=== PATIENT | male | born 1975 | race Caucasian/White ===

== ENCOUNTER 2023-07-14 21:19 | Inpatient (IN) | payer OTHER, MEDICAID, SELFPAY ==
[2023-07-14 21:21] VITALS: BP 150/123; PULSE 68; RESP 15; TEMP 36.7; O2SAT 97; BMI 38.9
--- NOTE | 2023-07-14 21:41 | EX.ED.SAOD ---
HPI History of Present Illness Chief Complaint: Substance Abuse Detail of Chief Complaint: Ativan withdrawal requesting detox Informant: patient Narrative Narrative: Patient presents to the emergency department with complaint of withdrawing from Ativan. Would like detox. Patient was at a facility in [place] voluntarily being weaned off of the Ativan and his last dose was 4 days ago had half a milligram. He had been taken 2 mg twice a day for 10 years prior for anxiety. Patient feels anxious and jittery and shaky. He left the program that in [place] early. He is not taking Vistaril and clonidine. [facility] Medical History (Updated 07/14/23 @ 21:[address] Buster Moctezuma, DO) OCD (obsessive compulsive disorder) Anxiety Home Medications ?Medication ?Instructions ?Recorded ?Last Taken ?Type apixaban 5 mg tablet (Eliquis) 5 mg PO BID 07/14/23 07/14/23 09:40 History clonidine HCl 0.1 mg tablet 0.1 mg PO BID 07/14/23 Unknown History hydroxyzine pamoate 25 mg capsule 50 mg PO Q8H 07/14/23 Unknown History (Vistaril) olanzapine 10 mg tablet (Zyprexa) 10 mg PO QHS 07/14/23 07/13/23 History propranolol 10 mg tablet 20 mg PO Q8H 07/14/23 Unknown History vortioxetine 20 mg tablet 20 mg PO DAILY 07/14/23 Unknown History Allergy/AdvReac Type Severity Reaction Status Date / Time trazodone AdvReac Mild BAD DREAMS Verified 07/14/23 21:20 Surgical History (Updated 07/14/23 @ 21:44 by Indigo Call) H/O colectomy History of appendectomy Social History Smoking Status: Never smoker ROS ROS ED Review of Systems ROS Unobtainable: other Constitutional Constitutional ED: Reports lethargy; Denies chills, fever(s), sweats or weight loss Eyes Eyes: Denies blurry vision, change in vision or diplopia ENT ENT ED: Denies rhinorrhea or sore throat Cardiovascular Cardiovascular: Denies chest pain, orthopnea or racing heartbeat Respiratory/Chest Respiratory/Chest: Denies cough, dyspnea, dyspnea on exertion, orthopnea or sputum Gastrointestinal Gastrointestinal: Denies abdominal pain, diarrhea, nausea or vomiting Genitourinary Genitourinary ED: Denies dysuria, hematuria or urinary frequency Musculoskeletal Musculoskeletal: Denies arthralgias, back pain, myalgias or neck pain Integumentary Denies abscess, Abrasions or rash Neurologic Neurologic: Reports other Details: Anxious ; Denies headache(s) or weakness Psychiatric Psychiatric: Denies anxiety, depression or suicidal thoughts Endocrine Endocrinology: Denies polydipsia, polyphagia or polyuria Hematologic/Lymphatic Hematologic/Lymphatic: Denies easy bleeding, easy bruising or lymphadenopathy Allergic/Immunologic Allergic/Immunologic ED: Denies mouth swelling, tongue swelling or urticaria EXAM Physical Exam Const Vital Signs: 07/14/23 21:21 Temperature 98.1 F Temperature Source Temporal Pulse Rate 68 Respiratory Rate 15 Blood Pressure 150/123 H Blood Pressure Mean 132 Pulse Ox 97 Oxygen Delivery Method Room Air Positive well nourished and well developed General Appearance ED: well developed and NAD HEENT Reports TM's clear and moist mucous membranes normocephalic and atraumatic; Negative for trauma or tenderness Tympanic Membrane ED: Yes TM's clear Eyes PERRL and EOMs intact bilaterally General Eye ED: Negative for pale conjunctiva or scleral icterus Neck no lymphadenopathy, supple and no JVD General: Negative for tenderness Chest Wall inspection of chest normal and palpation of chest normal Chest: Negative for tenderness Resp normal respiratory effort and clear to auscultation bilaterally Effort and Inspection: Negative for respiratory distress or pain with movement Auscultation: Negative for rhonchi, wheezes or diminished lung sounds Cardio regular rate, regular rhythm, S1 normal heart sound, S2 normal heart sound and no murmurs Peripheral Pulses: pulses 2+ throughout GI normal to inspection, nondistended, normoactive bowel sounds, soft to palpation, non-tender, non-distended and no masses Back/Spine no CVA tenderness and no thoracic nor lumbar tenderness Extremity normal to inspection General Extremety ED: Negative for edema General Extremity: Negative for edema Neuro oriented x3, CN's II-XII intact bilaterally, no sensory deficits noted and gait normal Sensorium / Orientation: awake, alert, oriented to person, oriented to place and oriented to time Motor Exam: strength 5/5 throughout and strength abnormal Psych mental status grossly normal Skin no rashes or lesions noted and no wounds MDM MDM MDM Narrative Medical decision making narrative: Case discussed with hospitalist who will evaluate patient for admission. I was asked to give patient phenobarbital. I ordered basic labs as well as urine tox and urine alcohol level. Discharge Plan Triage Chief Complaint: Substance Abuse ED Provider: Buster Moctezuma Dx/Rx/DC Orders Clinical Impression: Benzodiazepine withdrawal, Desire for detoxification, Hypertension, Hx pulmonary embolism Print Language: [place] Island[place] Disposition Disposition: Acute Care Hospital [facility]
--- NOTE | 2023-07-14 21:42 | PCM.HP.STD ---
[facility] - General General Date of Admission: 07/14/23 Date of Service: 07/14/23 Chief Complaint: With Detox from Ativan. 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 Mr. Murdock reports his symptoms began earlier today since he is no longer taking Ativan he began to feel shaky overall and uneasy. He also admits to escalating anxiety which caused him to come in for further evaluation and treatment. He denies associated fever, chills, nausea, vomiting, diarrhea, constipation or seizure activity. He also denies any other illicit drug use or other recent illness but his urine drug screen was positive for benzodiazepines and cannabis this admission. In the ER he was diagnosed with acute benzodiazepine withdrawal in the setting of chronic benzodiazepine abuse complicated by suicidal ideation after unwisely and prematurely stopping his benzodiazepine detoxification and he was then admitted to the general medical floor for ongoing care for stay that is expected to be greater than 2 midnights. [facility] Medical History Hypertension OCD (obsessive compulsive disorder) Anxiety Home Medications ?Medication ?Instructions ?Recorded ?Last Taken ?Type apixaban 5 mg tablet (Eliquis) 5 mg PO BID 07/14/23 07/14/23 09:40 History clonidine HCl 0.1 mg tablet 0.1 mg PO BID 07/14/23 Unknown History hydroxyzine pamoate 25 mg capsule 50 mg PO Q8H 07/14/23 Unknown History (Vistaril) olanzapine 10 mg tablet (Zyprexa) 10 mg PO QHS 07/14/23 07/13/23 History propranolol 10 mg tablet 20 mg PO Q8H 07/14/23 Unknown History vortioxetine 20 mg tablet 20 mg PO DAILY 07/14/23 Unknown History Allergy/AdvReac Type Severity Reaction Status Date / Time trazodone AdvReac Mild BAD DREAMS Verified 07/14/23 22:30 Surgical History H/O colectomy History of appendectomy Social History Smoking Status: Never smoker ROS ROS Narrative Review of systems: General: Patient denies fever or chills. HENT: Denies headache, denies stuffy nose, denies sore throat EYES: Denies changes in vision or discharge from eyes. Resp: Denies cough, denies shortness of breath Cardiac: Denies chest pain, palpitations or heart racing. GI: Denies abdominal pain, denies changes in bowel, denies nausea or vomiting. : Denies changes in urination Extremity: Denies swelling Musculoskeletal: Feels somewhat generally weak and unwell but denies arthralgias or myalgias. Neuro: Patient admits to generalized shakiness but he denies headache, paresthesias, focal neurologic deficits. Heme: Denies any bleeding or bruising Skin: Denies rashes Psychiatric: Patient admits to escalating anxiety as per HPI but he denies suicidal or homicidal ideation. Endocrine: No polyuria, polydipsia or polyphagia. The rest of the 14 point ROS was negative except for positives in HPI. Vital Signs Vital Signs Vital Signs: 07/14/23 21:21 Temperature 98.1 F Temperature Source Temporal Pulse Rate 68 Respiratory Rate 15 Blood Pressure 150/123 H Blood Pressure Mean 132 Pulse Ox 97 Oxygen Delivery Method Room Air Weight Weight: 271 lb Body Mass Index (BMI) 38.9 Physical Exam Const alert, oriented x3, no apparent distress and healthy appearing Constitutional Narrative: Patient is obese and appears anxious General Appearance: cooperative HEENT normocephalic, head/scalp atraumatic, hearing grossly normal bilaterally and moist oral mucous membranes Eyes PERRL and EOMs intact bilaterally Neck no lymphadenopathy and supple Resp normal respiratory effort, no retractions, no use of accessory muscles and clear to auscultation bilaterally Cardio regular rate and regular rhythm GI normal to inspection, nondistended, normoactive bowel sounds, soft to palpation, non-tender and non-distended GI Narrative: Significant obesity. Extremity normal to inspection and full ROM Skin Skin Narrative: Patient has no evidence of jaundice, abscess or rash. Neuro oriented x3, CN's II-XII intact bilaterally, moves all extremities and no focal motor deficits Neuro Narrative: Patient admits to generalized shakiness but is otherwise neurologically intact. Sensorium / Orientation: awake, alert, oriented to person, oriented to place and oriented to time Speech: speech normal Psych Mood & Affect: anxious Results Medical Records Data Attestation: I reviewed the patient's medical records Lab / Micro Data Attestation: I reviewed the patient's lab results. 07/14/23 21:55 07/14/23 21:55 Assessment & Plan Assessment/Plan (1) Benzodiazepine withdrawal: QUALIFIERS: Complication of substance-induced condition: uncomplicated Qualified Code(s): F13.930 - Sedative, hypnotic or anxiolytic use, unspecified with withdrawal, uncomplicated (2) Benzodiazepine abuse, continuous: (3) Suicidal ideation: (4) Hypertension: QUALIFIERS: Hypertension type: unspecified Qualified Code(s): I10 - Essential (primary) hypertension (5) Hx pulmonary embolism: (6) Desire for detoxification: (7) OCD (obsessive compulsive disorder): QUALIFIERS: Obsessive-compulsive disorder type: unspecified Qualified Code(s): F42.9 - Obsessive-compulsive disorder, unspecified (8) Anxiety: (9) Hyperbilirubinemia: PLAN: Plan 1. Acute benzodiazepine withdrawal in the setting of chronic benzodiazepine abuse for the past 10 years - Admit to general medical floor for detoxification primarily with phenobarbital taper. Patient was instructed to stop abusing Ativan. 2. Suicidal ideation in the setting of Obsessive-compulsive disorder with generalized anxiety complicating #1 - Obtain 24-hour sitter and psychiatric evaluation. Otherwise continue home medications as previous. 3. Recent admission to drug detoxification program in [place], [place] with patient apparently unadvisedly leaving prior to completing his Ativan wean - Noted. Patient was encouraged not to leave prematurely this admission as well. 4. UDS positive for THC - Cannabis cessation will be strongly encouraged. 5. Incidentally noted hyperbilirubinemia of 3.1 mg/dL present on admission with normal LFTs - Check RUQ ultrasound to evaluate liver and gallbladder anatomy for potential anatomic changes. Check hepatitis profile. Also check PT/INR to evaluate liver synthetic function. 6. Essential hypertension - Continue home regimen as previous. 7. History of PE; on Eliquis - Resume Eliquis. 8. Obesity; with BMI of 38.9 this admission - Weight loss will be recommended. Check TSH. 9. History of OCD and generalized anxiety - Resume home regimen as previous except avoid benzodiazepines. 10. History of colectomy - Noted. 11. History of appendectomy - Noted. 12. DVT prophylaxis - Patient on Eliquis for #7 which will be continued. Total time: Approximately 75 minutes. Charges/Coding Visit Charges Inpatient E&M: 15570 Init Hosp L3
--- NOTE | 2023-07-14 21:59 | NURSING ---
Notified Dr. Moctezuma that patient has a history of attempt of suicide and that he is currently suicidal and has a plan.
[2023-07-14 22:04] LABS: Absolute Lymphocyte Count 2.58 X10^3/uL (0.83-4.51); Absolute Neutrophil Count 5.2 X10^3/uL (2.0-7.7); Basophil# 0.05 X10^3/uL; Basophil% 0.6 % (0-1); Eosinophil# 0.18 X10^3/uL; Hematocrit 43.8 % (40-54); Lymphocyte # 2.58 X10^3/ul (0.83-4.51); Lymphocyte % 28.5 % (19-41); Mean Corp Hgb Conc 34.2 g/dL (32-36); Mean Corpuscular Hgb 29.3 pg (27.0-32.0); Mean Corpuscular Volume 85.5 fL (80-94); Mean Platelet Vol. 9.9 fl (6.2-12.0); Monocyte# 1.03 X10^3/uL; Monocyte% 11.4 % (0-10); NRBC Flagged by Analyzer 0 % (0-5); Neutrophil % 57.3 % (47-70); Platelet Count 406 K/mm3 (150-450); RBC Distribution Width CV 12.1 % (11.6-14.6); RBC Distribution Width SD 37.8 fl (35.1-43.9); Red Blood Count 5.12 M/mm3 (4.6-6.2); White Blood Count 9.1 K/mm3 (4.4-11.0)
--- NOTE | 2023-07-14 22:05 | ED.RN ---
Dr. Moctezuma did not think that the patient was actively suicidal and wanted to just treat his withdrawal symptoms. The charge nurse, Sarah, has been notified of the situation. The hospitalist will aslo be notified.
[2023-07-14] MEDS: Phenobarbital 32.4 MG Tablet 97.2 MG PO (22:10)
[2023-07-14 22:14] LABS: Amphetamine Urine NEGATIVE (<1000 ng/mL); Barbiturate Urine NEGATIVE (< 200 ng/mL); Benzodiazepine Urine POSITIVE (< 200 ng/mL); Cocaine Urine NEGATIVE (< 300 ng/mL); Ecstacy Urine NEGATIVE (< 500 ng/mL); Methadone Urine NEGATIVE (< 300 ng/mL); Opiates Urine NEGATIVE (< 300 ng/mL); PCP Urine NEGATIVE (< 25 ng/mL); THC Urine POSITIVE (< 50 ng/mL); Vista UDS pH Range 5
[2023-07-14 22:27] VITALS: BP 123/81; PULSE 61; RESP 16; TEMP 36.6; O2SAT 94
[2023-07-14 22:27] LABS: ALB/GLOB Ratio 1.1 RATIO (0.9-2.4); AST(SGOT) 37 U/L (15-37); Alanine Aminotransfer ALT/SGPT 55 U/L (16-61); Albumin, Serum 3.9 g/dL (3.2-5.0); Alkaline Phosphatase 75 U/L (45-117); Anion Gap 8 (5-15); BUN 15 mg/dL (7-18); BUN/Creat Ratio 13.5 RATIO (10-20); Calcium,Total 9.1 mg/dL (8.5-10.1); Chloride 107 mmol/L (98-107); Creatinine, Serum 1.11 mg/dL (0.70-1.30); EST Glomerular Filtration Rate 75 mL/min (>60); Est Glom Filt Rate - Afr Amer 91 mL/min (>60); Estimated Creatinine Clearance 105.86 ml/min; Globulin 3.7 g/dL (2.2-4.2); Glucose 128 mg/dL (74-106); Potassium 3.5 mmol/L (3.5-5.1); Protein, Total 7.6 g/dL (6.4-8.2); Sodium Level 137 mmol/L (136-145)
[2023-07-14 22:28] LABS: Alcohol, Blood (Medical)-Serum < 3.0 mg/dL
[2023-07-14 22:30] VITALS: BP 123/81; PULSE 61; RESP 16; TEMP 36.6; O2SAT 94
[2023-07-14 23:00] VITALS: RESP 18
[2023-07-15] VITALS (8 sets, daily range): BP systolic 99–146; BP diastolic 61–92; PULSE 45–72; RESP 15–18; TEMP 36.3–36.8; O2SAT 92–98; BMI 38.5
[2023-07-15] MEDS: hydrOXYzine PAM 25 MG Capsule 50 MG PO ×3 (01:21→14:20)
[2023-07-15] MEDS: Propranolol 10 MG Tablet 20 MG PO ×2 (01:22→14:19)
[2023-07-15] MEDS: cloNIDine HCl 0.1 MG Tablet PO ×2 (01:22→08:43)
[2023-07-15] MEDS: Phenobarbital 32.4 MG Tablet PO ×6 (01:22→21:29)
[2023-07-15] MEDS: APIXABAN 5 MG TABLET PO ×3 (01:22→23:00)
[2023-07-15] MEDS: OLANZapine 10 MG Tablet PO (01:23)
--- NOTE | 2023-07-15 02:57 | US_ITS ---
EXAM: US ABDOMEN LIMITED, RIGHT UPPER QUADRANT CLINICAL INDICATION: Hyperbilirubinemia TECHNIQUE: Real-time ultrasound of the right upper quadrant with image documentation. COMPARISON: No relevant prior studies available. FINDINGS: LIVER: Liver echogenicity appears increased suggesting diffuse parenchymal liver disease, likely steatosis. No intrahepatic biliary ductal dilation. GALLBLADDER: Normal. No shadowing gallstone. No gallbladder wall thickening is demonstrated. No pericholecystic fluid. Negative sonographic Stephen''s sign. COMMON BILE DUCT: Unremarkable as visualized. The proximal common bile duct is normal size. PANCREAS: Pancreas is obscured by overlying bowel gas. RIGHT KIDNEY: Normal. There is no hydronephrosis. No shadowing calculus. No focal lesion or perinephric collection is demonstrated. US/Liver IMPRESSION: Parenchymal liver disease. Electronically Signed: Bg Orourke MD at 8:56 EDT ,
[2023-07-15 08:09] LABS: Absolute Lymphocyte Count 2.33 X10^3/uL (0.83-4.51); Absolute Neutrophil Count 3.8 X10^3/uL (2.0-7.7); Basophil# 0.05 X10^3/uL; Basophil% 0.7 % (0-1); Eosinophils% 2.7 % (0-5); Hematocrit 45.7 % (40-54); Hemoglobin 15.3 g/dL (13.0-16.5); Lymphocyte # 2.33 X10^3/ul (0.83-4.51); Lymphocyte % 31.6 % (19-41); Mean Corp Hgb Conc 33.5 g/dL (32-36); Mean Corpuscular Hgb 28.9 pg (27.0-32.0); Mean Corpuscular Volume 86.4 fL (80-94); Mean Platelet Vol. 10.2 fl (6.2-12.0); Monocyte# 0.93 X10^3/uL; Monocyte% 12.6 % (0-10); NRBC Flagged by Analyzer 0 % (0-5); Neutrophil # 3.84 X10^3/uL (2.7-7.7); Neutrophil % 52.1 % (47-70); Platelet Count 406 K/mm3 (150-450); RBC Distribution Width CV 12.2 % (11.6-14.6); RBC Distribution Width SD 38.5 fl (35.1-43.9); Red Blood Count 5.29 M/mm3 (4.6-6.2); White Blood Count 7.4 K/mm3 (4.4-11.0)
[2023-07-15 08:20] LABS: International Normalized Ratio 1.2; Prothrombin Time (Protime)PT. 15.6 SECONDS (11.7-14.9)
[2023-07-15 08:33] LABS: AST(SGOT) 34 U/L (15-37); Alanine Aminotransfer ALT/SGPT 53 U/L (16-61); Albumin, Serum 3.8 g/dL (3.2-5.0); Alkaline Phosphatase 75 U/L (45-117); Anion Gap 7 (5-15); BUN 13 mg/dL (7-18); BUN/Creat Ratio 12.3 RATIO (10-20); Calcium,Total 9.3 mg/dL (8.5-10.1); Chloride 107 mmol/L (98-107); Creatinine, Serum 1.06 mg/dL (0.70-1.30); EST Glomerular Filtration Rate 79 mL/min (>60); Est Glom Filt Rate - Afr Amer 95 mL/min (>60); Estimated Creatinine Clearance 110.41 ml/min; Globulin 3.7 g/dL (2.2-4.2); Glucose 128 mg/dL (74-106); Potassium 3.8 mmol/L (3.5-5.1); Protein, Total 7.5 g/dL (6.4-8.2); Sodium Level 136 mmol/L (136-145); Thyroid Stim Hormone (TSH) 1.64 uIU/mL (0.358-3.74)
[2023-07-15] MEDS: Gabapentin 300 MG Capsule PO (08:42)
[2023-07-15] MEDS: VORTIOXETINE HYDROBROMIDE 20 MG TABLET PO (08:42)
[2023-07-15] MEDS: Folic Acid 1 MG Tablet PO (08:42)
[2023-07-15] MEDS: Thiamine Hydrochloride 100 MG Tablet PO (08:43)
--- NOTE | 2023-07-15 09:49 | PCM.PN.HOSP ---
Subjective Subjective Very anxious and tremulous, CIWA B score of 26 Objective Data Objective Data Vital Signs: Vital Signs Temp Pulse Resp BP Pulse Ox O2 Del Method 97.4 F L 72 18 128/82 H 93 Room Air 07/15/23 08:40 07/15/23 08:40 07/15/23 08:40 07/15/23 08:40 07/15/23 08:40 07/15/23 08:40 Oxygen Delivery Method Room Air Weight: 268 lb 15.423 oz Body Mass Index (BMI) 38.5 Intake & Output: Intake and Output for Last 24 Hours 07/14/23 07/15/23 07/16/23 03:59 03:59 03:59 Intake Total 200 / 200 Balance 200 / 200 Lab / Micro Data 07/15/23 07:48 07/15/23 07:48 Labs: Laboratory Results - last 24 hr 07/14/23 21:35: Urine Opiates Screen NEGATIVE, Urine Methadone Screen NEGATIVE, Ur Barbiturates Screen NEGATIVE, Ur Phencyclidine Scrn NEGATIVE, Ur Amphetamines Screen NEGATIVE, MDMA (Ecstasy) Screen NEGATIVE, U Benzodiazepines Scrn POSITIVE H, Urine Cocaine Screen NEGATIVE, U Cannabinoids Screen POSITIVE H, Ur Drug Screen Comment 07/14/23 21:55: WBC 9.1, RBC 5.12, Hgb 15.0, Hct 43.8, MCV 85.5, MCH 29.3, MCHC 34.2, RDW Std Deviation 37.8, RDW Coeff of Dino 12.1, Plt Count 406, MPV 9.9, Immature Gran % (Auto) 0.200, Neut % (Auto) 57.3, Lymph % (Auto) 28.5, [place] % (Auto) 11.4 H, Eos % (Auto) 2.0, Baso % (Auto) 0.6, Absolute Neuts (auto) 5.2, Absolute Lymphs (auto) 2.58, Nucleated RBC % 0, Sodium 137, Potassium 3.5, Chloride 107, Carbon Dioxide 22.0, Anion Gap 8, BUN 15, Creatinine 1.11, Estim Creat Clear Calc 105.86, Est GFR (MDRD) Af Amer 91, Est GFR (MDRD) Non-Af 75, BUN/Creatinine Ratio 13.5, Glucose 128 H, Calcium 9.1, Total Bilirubin 3.10 H, AST 37, ALT 55, Alkaline Phosphatase 75, Total Protein 7.6, Albumin 3.9, Globulin 3.7, Albumin/Globulin Ratio 1.1, Ethyl Alcohol < 3.0 07/15/23 07:48: WBC 7.4, RBC 5.29, Hgb 15.3, Hct 45.7, MCV 86.4, MCH 28.9, MCHC 33.5, RDW Std Deviation 38.5, RDW Coeff of Dino 12.2, Plt Count 406, MPV 10.2, Immature Gran % (Auto) 0.300, Neut % (Auto) 52.1, Lymph % (Auto) 31.6, [place] % (Auto) 12.6 H, Eos % (Auto) 2.7, Baso % (Auto) 0.7, Absolute Neuts (auto) 3.8, Absolute Lymphs (auto) 2.33, Nucleated RBC % 0, PT 15.6 H, INR 1.2, Sodium 136, Potassium 3.8, Chloride 107, Carbon Dioxide 22.0, Anion Gap 7, BUN 13, Creatinine 1.06, Estim Creat Clear Calc 110.41, Est GFR (MDRD) Af Amer 95, Est GFR (MDRD) Non-Af 79, BUN/Creatinine Ratio 12.3, Glucose 128 H, Calcium 9.3, Total Bilirubin 3.10 H, AST 34, ALT 53, Alkaline Phosphatase 75, Total Protein 7.5, Albumin 3.8, Globulin 3.7, Albumin/Globulin Ratio 1.0, TSH 1.64 Radiography Diagnostic Testing: Radiology Impression Liver Ultrasound 07/15/23 02:57 IMPRESSION: Parenchymal liver disease. Electronically Signed: Bg Orourke MD at 8:56 EDT , Physical Exam Narrative General: Alert, Oriented x3, Cooperative, very anxious and shaking HEENT: Atraumatic, PERRLA, EOMI, Normocephalic Oral: Moist Mucosa Neck: Supple, No JVD Lungs: Diminished, Normal air movement, No rhonchi, No wheeze, No rales Cardiovascular: Regular rate, Regular Rhythm, Normal S1, Normal S2, No murmurs Abdomen: Soft, Non Tender, Non-Distended, No Hepato-splenomegaly Extremities: No edema, Capillary Refill Less than 3 Seconds Skin: No rashes, No breakdown Musculoskeletal: No Tenderness to Palpation of Joints or Extremities Neurological: No focal neurological deficits, Motor Exam 5/5 strength throughout, Sensory exam intact to light touch and pain Psych/Mental Status: Anxious Assessment & Plan Assessment/Plan (1) Benzodiazepine withdrawal: QUALIFIERS: Complication of substance-induced condition: uncomplicated Qualified Code(s): F13.930 - Sedative, hypnotic or anxiolytic use, unspecified with withdrawal, uncomplicated (2) Benzodiazepine abuse, continuous: (3) Suicidal ideation: (4) Hypertension: QUALIFIERS: Hypertension type: unspecified Qualified Code(s): I10 - Essential (primary) hypertension (5) Hx pulmonary embolism: (6) Desire for detoxification: (7) OCD (obsessive compulsive disorder): QUALIFIERS: Obsessive-compulsive disorder type: unspecified Qualified Code(s): F42.9 - Obsessive-compulsive disorder, unspecified (8) Anxiety: (9) Hyperbilirubinemia: PLAN: Plan 1. Acute benzodiazepine withdrawal/OCD suicidal ideation ? He did do a detox in [place] but he left AMA ? Currently having significant anxiety so we will continue with the benzodiazepine withdrawal protocol but will also add Ativan and wean as able ? He did have a positive THC in his urine drug screen ? Will have him follow-up with 180 or if he is from [place] have [facility] reach out to local rehab facilities for both inpatient and outpatient options ? Noted to have hyperbilirubinemia, liver ultrasound was unremarkable ? Continue with his home olanzapine and Vortioxetine 2. Essential HTN ? Continue with his home blood pressure medications, will monitor make adjustments as necessary 3. History of PE ? Currently on Eliquis ? Will continue DVT: Eliquis Charges/Coding Visit Charges Inpatient E&M: 16610 Subs Hosp L2
[2023-07-15] MEDS: LORazepam 1 MG Tablet PO ×3 (09:52→23:08)
[2023-07-15 10:53] LABS: Hemoglobin A1c 5.8 % (3.8-5.6)
--- NOTE | 2023-07-15 12:09 | CASEMGMT ---
Social Work SW met with pt to discuss advance directives.? Pt confirms she has completed a living will and health care POA naming Darlene, .? Pt notified that documents are not on file at [facility] and SW requested they be brought in for scanning into the EMR.? REBECA Pandey
--- NOTE | 2023-07-15 13:56 | ADDICTION ---
This science writer attempted to meet with PT. PT did not rouse to 3x verbal queuing. [facility] staff will attempt to meet with PT at next visit on 07/15.?
[2023-07-16] VITALS (8 sets, daily range): BP systolic 104–130; BP diastolic 68–86; PULSE 49–65; RESP 15–18; TEMP 36.6–36.8; O2SAT 93–95
[2023-07-16] MEDS: Phenobarbital 32.4 MG Tablet PO ×6 (01:43→21:25)
[2023-07-16] MEDS: hydrOXYzine PAM 25 MG Capsule 50 MG PO ×3 (05:54→21:24)
[2023-07-16 08:11] LABS: HEPATITIS B SURFACE AG Negative (Negative); Hep C Antibodies Non Reactive (Non Reactive); Hepatitis A IgM Antibody Negative (Negative); Hepatitis B Core AB IgM Negative (Negative)
[2023-07-16] MEDS: Thiamine Hydrochloride 100 MG Tablet PO (08:28)
[2023-07-16] MEDS: Folic Acid 1 MG Tablet PO (08:28)
[2023-07-16] MEDS: LORazepam 0.5 MG Tablet PO (08:34)
[2023-07-16] MEDS: VORTIOXETINE HYDROBROMIDE 20 MG TABLET PO (10:51)
[2023-07-16] MEDS: APIXABAN 5 MG TABLET PO ×2 (10:51→21:25)
[2023-07-16] MEDS: cloNIDine HCl 0.1 MG Tablet PO ×2 (10:52→21:24)
--- NOTE | 2023-07-16 13:02 | ADDICTION ---
Pt was met w/to complete a [facility] assessment, AUDIT, DUDIT, Mt. Status, DC Plan, and ASAM. Pt reports he has been struggling with dependence on RX Benzodiazepines for the past ten years. Pt states that his DrMatthew wanted him to get off the medication so he went to detox in [place] last week. Pt left detox AMA on Tuesday and his w/d sxs persisted and worsened over the next day. Pt was admitted to [facility] and is being treated for benzo w/d. Pt states he is afraid to go home because he does not know how he will manage his w/d sxs if they return again. Pt denies any substance use hx and pt denies having a current substance use disorder. Pt states that his medication was prescribed and he did not abuse it. Pt was provided psychoeducation on his risk of relapse, need for follow up care, mh comorbidities, resources available, and options for residential and OP [facility] tx. Pt was engaged in DC planning and he states he wants to go home to follow up with OP counseling and medication management w/[facility] in [place]. Pt admits he is worried his will be upset if he does not go to residential tx. Pt agreed to remain open minded about his tx options and to discuss w/Addiction Medicine on Tuesday. Pt is expected to require a minimum of 5 day detox d/t the severity of his sxs.
--- NOTE | 2023-07-16 14:02 | PCM.PN.HOSP ---
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 Patient states that he would like to do outpatient detox rather than an inpatient program. Patient according to documentation was using 2 mg of Ativan twice a day, he recently spent several days at a detox facility and according to the patient, he asked to be discharged after 5 days although he states the detox facility wanted him to stay an extra 2 days. Patient is currently being given Ativan here in addition to phenobarbital, I have elected to change him over to Valium. I had a discussion with addiction social security specialist and told them that patient would not be discharged before Tuesday so that we could have a plan for follow-up when he leaves the hospital. Objective Data Objective Data Vital Signs: Vital Signs Temp Pulse Resp BP Pulse Ox O2 Del Method 98 F 60 18 130/86 H 95 Room Air 07/16/23 08:00 07/16/23 12:00 07/16/23 12:00 07/16/23 08:00 07/16/23 12:00 07/16/23 12:00 Oxygen Delivery Method Room Air Weight: 122 kg Body Mass Index (BMI) 38.5 Intake & Output: Intake and Output for Last 24 Hours 07/14/23 07/15/23 07/16/23 23:59 23:59 23:59 Intake Total 200 / 200 360 / 360 Balance 200 / 200 360 / 360 Lab / Micro Data 07/15/23 07:48 07/15/23 07:48 Labs: Laboratory Results - last 24 hr 07/15/23 07:48: Hepatitis A IgM Ab Negative, Hep Bs Antigen Negative, Hep B Core IgM Ab Negative, Hepatitis C Ab (EIA) Non Reactive, Hep C Ab Comment Comment Physical Exam Const alert, oriented x3, no apparent distress and healthy appearing General Appearance: cooperative, well kempt and well developed Orientation / Consciousness: awake, oriented to person, oriented to place and oriented to time HEENT normocephalic, head/scalp atraumatic and moist oral mucous membranes Eyes PERRL, EOMs intact bilaterally and conjunctivae normal Neck supple, no JVD, thyroid normal and no carotid bruits General: trachea midline Resp normal respiratory effort and clear to auscultation bilaterally Auscultation: Negative for rales, rhonchi or wheezes Cardio regular rate, regular rhythm, S1 normal heart sound, S2 normal heart sound, no murmurs, no rub and no gallops GI normal to inspection, nondistended, normoactive bowel sounds, soft to palpation, non-tender and non-distended Extremity no clubbing, cyanosis or edema Skin no rashes or lesions noted General Skin Exam: no breakdown Neuro oriented x3, CN's II-XII intact bilaterally, moves all extremities, no focal motor deficits and no sensory deficits noted Sensorium / Orientation: awake and alert Speech: speech normal Psych affect normal Assessment & Plan Assessment/Plan (1) Benzodiazepine abuse, continuous: PLAN: Plan 1. Acute benzodiazepine withdrawal-again patient will remain on phenobarbital for now and I have transitioned him over to 4 times a day Valium at 5 mg per dose-5 mg of Valium is equal to half a milligram of Ativan. 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
[2023-07-16] MEDS: Propranolol 10 MG Tablet 20 MG PO ×2 (14:37→21:24)
[2023-07-16] MEDS: diazePAM 5 MG Tablet PO ×3 (14:37→21:24)
[2023-07-16] MEDS: OLANZapine 10 MG Tablet PO (21:25)
[2023-07-17] MEDS: Phenobarbital 32.4 MG Tablet PO ×5 (01:15→21:14)
[2023-07-17 03:00] VITALS: BP 148/93; PULSE 49; PULSE 65; RESP 16; RESP 18; TEMP 36.7; O2SAT 94; O2SAT 95
[2023-07-17] MEDS: hydrOXYzine PAM 25 MG Capsule 50 MG PO ×3 (05:15→22:03)
[2023-07-17] MEDS: Propranolol 10 MG Tablet 20 MG PO ×3 (05:15→22:03)
[2023-07-17 09:25] VITALS: BP 148/95; PULSE 50; RESP 16; TEMP 36.9; O2SAT 96
[2023-07-17] MEDS: Thiamine Hydrochloride 100 MG Tablet PO (09:37)
[2023-07-17] MEDS: cloNIDine HCl 0.1 MG Tablet PO ×2 (09:38→22:03)
[2023-07-17] MEDS: Folic Acid 1 MG Tablet PO (09:38)
[2023-07-17] MEDS: APIXABAN 5 MG TABLET PO ×2 (09:39→22:03)
[2023-07-17] MEDS: VORTIOXETINE HYDROBROMIDE 20 MG TABLET PO (09:40)
[2023-07-17] MEDS: diazePAM 5 MG Tablet PO ×4 (09:43→22:03)
--- NOTE | 2023-07-17 10:09 | PCM.PN.HOSP ---
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, hypnotic or anxiolytic abuse, uncomplicated (07/14/23) Sedative, hypnotic or anxiolytic use, unspecified with withdrawal, uncomplicated (07/14/23) Anxiety disorder, unspecified (07/14/23) Obsessive-compulsive disorder, unspecified (07/14/23) Essential (primary) hypertension (07/14/23) Suicidal ideations (07/14/23) Personal history of pulmonary embolism (07/14/23) Subjective Subjective Patient was seen and examined today, he does not complain of any tremor or nervousness, I told the patient that I am going to reduce his Valium slightly-I am going to make it 3 times a day to see if he tolerates this. Objective Data Objective Data Vital Signs: Vital Signs Temp Pulse Resp BP Pulse Ox O2 Del Method 98.5 F 50 L 16 148/95 H 96 Room Air 07/17/23 09:25 07/17/23 09:25 07/17/23 09:25 07/17/23 09:25 07/17/23 09:25 07/17/23 09:25 Oxygen Delivery Method Room Air Weight: 122 kg Body Mass Index (BMI) 38.5 Intake & Output: Intake and Output for Last 24 Hours 07/15/23 07/16/23 07/17/23 23:59 23:59 23:59 Intake Total 200 / 200 760 / 760 Balance 200 / 200 760 / 760 Lab / Micro Data 07/15/23 07:48 07/15/23 07:48 Physical Exam Const alert, oriented x3, no apparent distress and healthy appearing General Appearance: cooperative, well kempt and well developed Orientation / Consciousness: awake, oriented to person, oriented to place and oriented to time HEENT normocephalic, head/scalp atraumatic and moist oral mucous membranes Eyes PERRL, EOMs intact bilaterally and conjunctivae normal Neck supple, no JVD, thyroid normal and no carotid bruits General: trachea midline Resp normal respiratory effort and clear to auscultation bilaterally Auscultation: Negative for rales, rhonchi or wheezes Cardio regular rate, regular rhythm, S1 normal heart sound, S2 normal heart sound, no murmurs, no rub and no gallops GI normal to inspection, nondistended, normoactive bowel sounds, soft to palpation, non-tender and non-distended Extremity no clubbing, cyanosis or edema Skin no rashes or lesions noted General Skin Exam: no breakdown Neuro oriented x3, CN's II-XII intact bilaterally, moves all extremities, no focal motor deficits and no sensory deficits noted Sensorium / Orientation: awake and alert Speech: speech normal Psych affect normal Assessment & Plan Assessment/Plan (1) Benzodiazepine abuse, continuous: PLAN: Plan 1. Acute benzodiazepine withdrawal-again patient will remain on phenobarbital for now, I have decided to reduce the patient's Valium to 5 mg 3 times a day to see if he tolerates this dosage. #2 essential hypertension-patient will remain on his current medications #3 chronic anxiety-patient is currently on Zyprexa and Trintellix #4 chronic use of anticoagulants due to past history of VTE-patient is on Eliquis Total clinical time spent by myself addressing the patient's medical issues, reviewing all of his medical data, and collaborating with patient's care team: 35 minutes Charges/Coding Visit Charges Inpatient E&M: 63772 Subs Hosp L2
[2023-07-17 14:00] VITALS: BP 118/76; PULSE 60; RESP 18; TEMP 36.6; O2SAT 97
[2023-07-17 20:00] VITALS: BP 117/81; PULSE 60; RESP 16; TEMP 36.8; O2SAT 94
[2023-07-17] MEDS: OLANZapine 10 MG Tablet PO (22:03)
[2023-07-18 03:18] VITALS: BP 116/85; PULSE 52; RESP 16; TEMP 36.3; O2SAT 94
[2023-07-18] MEDS: Phenobarbital 32.4 MG Tablet PO ×4 (03:18→20:21)
[2023-07-18] MEDS: hydrOXYzine PAM 25 MG Capsule 50 MG PO ×3 (06:27→22:34)
[2023-07-18 06:29] VITALS: BP 134/90; PULSE 51; RESP 16; TEMP 36.4; O2SAT 96
[2023-07-18] MEDS: Thiamine Hydrochloride 100 MG Tablet PO (07:46)
[2023-07-18] MEDS: Folic Acid 1 MG Tablet PO (07:47)
[2023-07-18 07:50] VITALS: BP 143/100; PULSE 52; RESP 16; TEMP 36.6; O2SAT 98
[2023-07-18] MEDS: APIXABAN 5 MG TABLET PO ×2 (09:31→22:34)
[2023-07-18] MEDS: cloNIDine HCl 0.1 MG Tablet PO ×2 (09:32→22:34)
[2023-07-18] MEDS: VORTIOXETINE HYDROBROMIDE 20 MG TABLET PO (09:32)
[2023-07-18] MEDS: diazePAM 5 MG Tablet PO ×4 (09:35→22:35)
--- NOTE | 2023-07-18 11:22 | PCM.PN.HOSP ---
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 Objective Data Objective Data Vital Signs: Vital Signs Temp Pulse Resp BP Pulse Ox O2 Del Method 98 F 52 L 16 143/100 H 98 Room Air 07/18/23 07:50 07/18/23 07:50 07/18/23 07:50 07/18/23 07:50 07/18/23 07:50 07/18/23 07:56 Oxygen Delivery Method Room Air Weight: 122 kg Body Mass Index (BMI) 38.5 Intake & Output: Intake and Output for Last 24 Hours 07/16/23 07/17/23 07/18/23 23:59 23:59 23:59 Intake Total 760 / 760 1000 / 1700 700 / 700 Balance 760 / 760 1000 / 1700 700 / 700 Lab / Micro Data 07/15/23 07:48 07/15/23 07:48 Physical Exam Const alert, oriented x3, no apparent distress and healthy appearing General Appearance: cooperative, well kempt and well developed Orientation / Consciousness: awake, oriented to person, oriented to place and oriented to time HEENT normocephalic and moist oral mucous membranes Eyes PERRL, EOMs intact bilaterally and conjunctivae normal Neck supple, no JVD, thyroid normal and no carotid bruits General: trachea midline Resp normal respiratory effort and clear to auscultation bilaterally Auscultation: Negative for rales, rhonchi or wheezes Cardio regular rate, regular rhythm, no murmurs, no rub and no gallops GI normal to inspection, nondistended, normoactive bowel sounds, soft to palpation, non-tender and non-distended Extremity no clubbing, cyanosis or edema Skin no rashes or lesions noted General Skin Exam: no breakdown Neuro oriented x3, CN's II-XII intact bilaterally, no focal motor deficits and no sensory deficits noted Sensorium / Orientation: awake and alert Speech: speech normal Psych affect normal Assessment & Plan Assessment/Plan (1) Benzodiazepine abuse, continuous: PLAN: Plan 1. 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
[2023-07-18 13:54] VITALS: BP 125/82; PULSE 68; RESP 18; TEMP 36.9; O2SAT 97
[2023-07-18] MEDS: Propranolol 10 MG Tablet 20 MG PO ×2 (13:56→22:35)
--- NOTE | 2023-07-18 15:43 | ADDICTION ---
Pt was met with to discuss DC planning and continuing care. Pt states he wants to DC home and follow up with an outpatient provider because he does not believe he has a [facility]. Pt's states his wants him to go to a residential facility to continue his Benzo taper because she does not want to deal with him at home. There are no [facility] residential facilities available that admit Pt's with a Benzo Rx. Pt was offered the option of a PHP or IOP LoC through [facility] in [place] and he states he would be willing to explore this option. Pt's physician has agreed to keep pt until after 07.18 to ensure he is able to follow up with Dr. Torre to confirm pt's aftercare and Benzo taper protocol.
[2023-07-18 20:14] VITALS: BP 127/81; PULSE 63; RESP 18; TEMP 36.8; O2SAT 94
[2023-07-18 22:32] VITALS: BP 115/77; PULSE 60
[2023-07-18] MEDS: OLANZapine 10 MG Tablet PO (22:34)
[2023-07-19 03:19] VITALS: BP 120/85; PULSE 46; RESP 18; TEMP 36.3; O2SAT 98
[2023-07-19] MEDS: Phenobarbital 32.4 MG Tablet PO (03:23)
[2023-07-19 05:38] VITALS: PULSE 90
[2023-07-19] MEDS: Propranolol 10 MG Tablet 20 MG PO ×2 (05:38→13:40)
[2023-07-19] MEDS: hydrOXYzine PAM 25 MG Capsule 50 MG PO ×3 (05:38→20:38)
[2023-07-19 09:00] VITALS: BP 137/94; PULSE 55; RESP 18; TEMP 36.4; O2SAT 95
[2023-07-19] MEDS: Thiamine Hydrochloride 100 MG Tablet PO (09:46)
[2023-07-19] MEDS: cloNIDine HCl 0.1 MG Tablet PO ×2 (09:46→20:38)
[2023-07-19] MEDS: APIXABAN 5 MG TABLET PO ×2 (09:46→20:37)
[2023-07-19] MEDS: diazePAM 5 MG Tablet PO ×4 (09:46→20:38)
[2023-07-19] MEDS: Folic Acid 1 MG Tablet PO (09:46)
[2023-07-19] MEDS: VORTIOXETINE HYDROBROMIDE 20 MG TABLET PO (09:46)
--- NOTE | 2023-07-19 14:07 | NURSING ---
OK to give pt phone to call per Dr Childers.
[2023-07-19 14:15] VITALS: BP 147/90; PULSE 80; RESP 18; TEMP 36.5; O2SAT 93
--- NOTE | 2023-07-19 14:42 | PCM.PN.HOSP ---
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, hypnotic or anxiolytic abuse, uncomplicated (07/14/23) Sedative, hypnotic or anxiolytic use, unspecified with withdrawal, uncomplicated (07/14/23) Anxiety disorder, unspecified (07/14/23) Obsessive-compulsive disorder, unspecified (07/14/23) Essential (primary) hypertension (07/14/23) Suicidal ideations (07/14/23) Personal history of pulmonary embolism (07/14/23) Subjective Subjective Patient was seen and examined today, his told him that he could not come home unless he did inpatient detox, patient does not want to do inpatient detox he seems very nervous and upset about this he also stated that his parents told him that they wanted him to do inpatient detox also. Patient appears to be resigned that he has to do this, for now I have elected to keep him on his present dose of Valium. Objective Data Objective Data Vital Signs: Vital Signs Temp Pulse Resp BP Pulse Ox O2 Del Method 97.5 F L 55 L 18 137/94 H 95 Room Air 07/19/23 09:00 07/19/23 09:00 07/19/23 09:00 07/19/23 09:00 07/19/23 09:00 07/19/23 09:00 Oxygen Delivery Method Room Air Weight: 122 kg Body Mass Index (BMI) 38.5 Intake & Output: Intake and Output for Last 24 Hours 07/17/23 07/18/23 07/19/23 23:59 23:59 23:59 Intake Total 1000 / 1700 1800 / 1800 1400 / 1400 Balance 1000 / 1700 1800 / 1800 1400 / 1400 Lab / Micro Data 07/15/23 07:48 07/15/23 07:48 Physical Exam Narrative Patient is alert, he appears extremely nervous at this time and upset. Orientation / Consciousness: awake, oriented to person, oriented to place and oriented to time HEENT normocephalic and moist oral mucous membranes Eyes PERRL, EOMs intact bilaterally and conjunctivae normal Neck supple, no JVD, thyroid normal and no carotid bruits General: trachea midline Resp normal respiratory effort and clear to auscultation bilaterally Auscultation: Negative for rales, rhonchi or wheezes Cardio regular rate, regular rhythm, no murmurs, no rub and no gallops GI normal to inspection, nondistended, normoactive bowel sounds, soft to palpation, non-tender and non-distended Extremity no clubbing, cyanosis or edema Skin no rashes or lesions noted General Skin Exam: no breakdown Neuro oriented x3, CN's II-XII intact bilaterally, no focal motor deficits and no sensory deficits noted Sensorium / Orientation: awake and alert Speech: speech normal Psych Patient appears anxious and upset. Assessment & Plan Assessment/Plan (1) Benzodiazepine abuse, continuous: PLAN: Plan 1. Acute benzodiazepine withdrawal- patient will remain on Valium 5 mg 3 times daily, it appears that he is willing to do an inpatient detox program #2 essential hypertension-patient will remain on his current medications #3 chronic anxiety-patient is currently on Zyprexa and Trintellix #4 chronic use of anticoagulants due to past history of VTE-patient is on Eliquis Total clinical time spent by myself addressing the patient's medical issues, reviewing all of his medical data, and collaborating with patient's care team: 35 minutes Charges/Coding Visit Charges Inpatient E&M: 23474 Subs Hosp L2
--- NOTE | 2023-07-19 14:49 | NURSING ---
Pt out to desk in tears. visibly shaking. assisted patient back to room and emotional support given. pt verbalized he has decided to go to inpatient treatment. states refusing for him to come home and he is not going anywhere else. states his daughter has been admitted to [facility]. pt states he would like to see about getting into this facility. discussed if he specifically wants to go there or any facility the aleida navigator can get him into. pt states he will go anywhere but would like some information about where it is he would go. emotional support given and discussed it being his decision if he is discharged home or to inpatient facility. discussed following up in [facility] as earlier discussed with Deshawn andrews if he does go outpatient. primary RN as well as Dr. Childers into room, pt verbalized to Dr. Childers he would like to go inpatient. call placed to Deshawn Yaoator regarding patient's decision. aware Deshawn would make referral to [facility] in [place]. H&P and demographics sent to referral at [phone]. Deshawn stated they have detox in facility as well if needed but patient would not go with a benzo script. Primary RN to updated Dr. Childers regarding [facility] and script.
[2023-07-19] MEDS: Gabapentin 300 MG Capsule PO (15:27)
--- NOTE | 2023-07-19 15:55 | CHAPLAIN ---
Type of Pastoral Visit _x__ Initial Visit ___ Follow-up Visit ___ On-call Visit ___ General Patient Visit ___ Spiritual Assessment ___ Family Conference ___ Bereavement ___ Rapid Response ___ Code Blue ___ Other (describe below) Pastoral Care Referral From ___ Patient ___ Family _x__ Nurse ___ Physician ___ Spray Dry Operator ___ Varnishing Unit Tool Setter ___ Other (describe below) Sacrament/Intervention _x__ Active listening ___ Anointing ___ Voodoo ___ Bereavement ___ Communion ___ Rose Mary exploration ___ _x__ Life review _x__ Prayer ___ Reconciliation ___ Sacrament of Sick _x__ Supportive presence ___ Wedding ___ Other (describe below) Pastoral Comments fare collector called for the support of this cloth washer for patient who is experiencing high anxiety; pt is tearful at various times during the conversation; pt expresses his addiction through prescribed medications and that he really wants to be home with his family; pt however admits that his family all want him to be in rehab and to get help; pt has left other programs in the past and has thoughts of doing the same again; pt worries that he cannot handle going to an inpatient rehab and that he has let his family down due to my weakness; lots of listening, supportive presence, reflection, and steering individual to see better things for now and the future; pt is encouraged to focus on today and now how it might be in a rehab or away from his family; prayer is welcomed; pt is of the Mandaen rose mary but expresses some apprehensions about how God might be punishing me; looked at the hope and mercy of God
[2023-07-19 20:30] VITALS: BP 104/82; PULSE 53; RESP 18; TEMP 36.7; O2SAT 95
[2023-07-19] MEDS: OLANZapine 10 MG Tablet PO (20:38)
[2023-07-20 04:07] VITALS: BP 103/80; PULSE 53; RESP 18; TEMP 36.5; O2SAT 96
[2023-07-20 06:15] VITALS: PULSE 75
[2023-07-20] MEDS: hydrOXYzine PAM 25 MG Capsule 50 MG PO ×2 (06:16→13:19)
[2023-07-20] MEDS: Propranolol 10 MG Tablet 20 MG PO ×2 (06:16→13:19)
[2023-07-20 08:21] VITALS: PULSE 60
[2023-07-20 08:22] VITALS: BP 137/95; PULSE 60; RESP 18; TEMP 36.3; O2SAT 97
[2023-07-20] MEDS: cloNIDine HCl 0.1 MG Tablet PO (09:17)
[2023-07-20] MEDS: Thiamine Hydrochloride 100 MG Tablet PO (09:17)
[2023-07-20] MEDS: APIXABAN 5 MG TABLET PO (09:17)
[2023-07-20] MEDS: diazePAM 5 MG Tablet PO ×2 (09:17→13:19)
[2023-07-20] MEDS: Folic Acid 1 MG Tablet PO (09:17)
[2023-07-20] MEDS: VORTIOXETINE HYDROBROMIDE 20 MG TABLET PO (09:17)
--- NOTE | 2023-07-20 09:32 | DCINST_ITS ---
Discharge Instructions Diet Discharge Diet: No restrictions Activity Discharge Activity: Return to Normal Activity Weight Bearing Status: Full weight bearing Follow Up Care Test Results: Test results from this visit will be discussed in further detail at your follow- up appointment, if applicable. Discharge Plan Admission Admit Date/Time: 07/14/23 21:55 Primary Reason for Your Visit: benzodiazepine detox Attending Provider: Inderjit Childers Primary Care Provider: Care Physician,No Primary Consulting Providers: Nader Nunez; Misael Bryant Instructions Additional Instructions / Restrictions: transfer to detox facility Discharge Orders/Prescriptions Prescriptions: Continued olanzapine [Zyprexa] 10 mg tablet 10 mg PO QHS Eliquis 5 mg tablet 5 mg PO BID clonidine HCl 0.1 mg tablet 0.1 mg PO BID vortioxetine 20 mg tablet 20 mg PO DAILY Patient Comments: Patient states he can't take extended release due to colon resection. hydroxyzine pamoate [Vistaril] 25 mg capsule 50 mg PO Q8H propranolol 10 mg tablet 20 mg PO Q8H Referrals / Follow Up: Care Physician,No Primary [Primary Care Provider] - Disposition Disposition (needs filled in before D/C Order can be placed): DC/Tx to Another Type of HCF
--- NOTE | 2023-07-20 11:03 | PCM.DC.SUM ---
Providers Date of Admission: 07/14/23 Date of Discharge: 07/20/23 Primary Care Physician: No Primary Care Phys Reason For Visit: ACUTE BENZODIAZEPINE WITHDRAWAL IN THE SETTING Diagnosis Discharge Diagnosis (1) Benzodiazepine abuse, continuous: Status: Acute Code(s): F13.10 - Sedative, hypnotic or anxiolytic abuse, uncomplicated Plan 1. Acute benzodiazepine withdrawal- patient will remain on Valium 5 mg 3 times daily, it appears that he is willing to do an inpatient detox program #2 essential hypertension-patient will remain on his current medications #3 chronic anxiety-patient is currently on Zyprexa and Trintellix #4 chronic use of anticoagulants due to past history of VTE-patient is on Eliquis Total clinical time spent by myself addressing the patient's medical issues, reviewing all of his medical data, and collaborating with patient's care team: 35 minutes Medications at Discharge Home Medications apixaban 5 mg tablet (Eliquis) 5 mg PO BID 07/14/23 clonidine HCl 0.1 mg tablet 0.1 mg PO BID 07/14/23 hydroxyzine pamoate 25 mg capsule (Vistaril) 50 mg PO Q8H 07/14/23 olanzapine 10 mg tablet (Zyprexa) 10 mg PO QHS 07/14/23 propranolol 10 mg tablet 20 mg PO Q8H 07/14/23 vortioxetine 20 mg tablet 20 mg PO DAILY 07/14/23 Hospital Course Operations None Procedures None Summary of Care Provided Minutes Spent on Discharge: 31 Hospital Course: This 48-year-old white male was seen in the emergency room at [facility] requesting services for detox from [facility]. He had recently been hospitalized and another facility for detox services but checked himself out AMA after staying several days. Patient was admitted to [facility], placed on phenobarbital, I felt that the patient would need to continue benzodiazepines in a tapering fashion and placed the patient on p.o. Valium. Patient had no major untoward events during his hospitalization, he initially refused to go into an inpatient detox facility at the conclusion of his hospitalization but then changed his mind due to the fact his and parents wanted him to go into an inpatient detox facility. On 07/20/2023, patient was seen and examined: On examination he appeared in good health and spirits. Vital signs as documented. Skin warm and dry and without overt rashes. Neck without JVD, neck was supple, trachea midline, thyroid was normal. Lungs clear bilaterally, normal air movement was noted. Heart exam notable for regular rhythm, normal sounds and absence of murmurs, rubs or gallops. Abdomen unremarkable and without evidence of organomegaly, masses, or abdominal aortic enlargement. Bowel sounds are present, abdomen is not distended. Extremities nonedematous, no cyanosis was noted, no clubbing was noted. Neuro: Cranial nerves II through XII are grossly intact, no focal motor deficits were noted, sensation to light touch and pinprick intact, motor exam 5/5 throughout. Psych: Patient is alert and oriented x3, he does not appear anxious or depressed, he does not appear agitated. Patient appear to be stable for discharge to an inpatient detox facility in [place], [place] on 07/20/2023 Weight / BMI Weight Weight: 122 kg Body Mass Index (BMI) 38.5 ABG / Lab / Microbiology Data 07/15/23 07:48 07/15/23 07:48 D/C Instructions Discharge Diet: No restrictions Weight Bearing Status: Full weight bearing Meaningful Use Info Meaningful Use Meaningful Use Diagnoses (Choose all that apply): None applicable Ischemic Stroke Statin Dosing Therapy Reference: STATIN DOSE THERAPY REFERENCE: * Patients > 75 years receive moderate or high dose statin therapy. * Patients 75 years or YOUNGER should receive HIGH intensity statin dose unless contraindicated. You will be required to document reason for non-treatment if statin daily dose does not meet guidelines. HIGH DOSE STATIN THERAPY DAILY Atorvastatin > than or = to 40 mg Rosuvastatin > than or = to 20 mg Amlodipine + Atorvastatin > than or = to 2.5/40 mg Ezetimibe + Simvastatin 10/80 mg Simvastatin 80mg Discharge Plan Admission Admit Date/Time: 07/14/23 21:55 Primary Reason for Your Visit: benzodiazepine detox Attending Provider: Inderjit Childers Primary Care Provider: Care Physician,No Primary Consulting Providers: Nader Nunez; Misael Bryant Instructions Additional Instructions / Restrictions: transfer to detox facility Discharge Orders/Prescriptions Prescriptions: Continued olanzapine [Zyprexa] 10 mg tablet 10 mg PO QHS Eliquis 5 mg tablet 5 mg PO BID clonidine HCl 0.1 mg tablet 0.1 mg PO BID vortioxetine 20 mg tablet 20 mg PO DAILY Patient Comments: Patient states he can't take extended release due to colon resection. hydroxyzine pamoate [Vistaril] 25 mg capsule 50 mg PO Q8H propranolol 10 mg tablet 20 mg PO Q8H Referrals / Follow Up: Care Physician,No Primary [Primary Care Provider] - Disposition Disposition (needs filled in before D/C Order can be placed): DC/Tx to Another Type of HCF Charges/Coding Visit Charges Inpatient E&M: 09687 Disch Hosp >30min
--- NOTE | 2023-07-20 11:26 | PHA.DC.MR.R ---
Pharmacy [place] Med Reconciliation Pharmacy Service has performed discharge medication reconciliation for this patient. The patient's discharge medication list was reviewed for discrepancies and discrepancies were resolved. Medications at Discharge Home Medications apixaban 5 mg tablet (Eliquis) 5 mg PO BID 07/14/23 clonidine HCl 0.1 mg tablet 0.1 mg PO BID 07/14/23 hydroxyzine pamoate 25 mg capsule (Vistaril) 50 mg PO Q8H 07/14/23 olanzapine 10 mg tablet (Zyprexa) 10 mg PO QHS 07/14/23 propranolol 10 mg tablet 20 mg PO Q8H 07/14/23 vortioxetine 20 mg tablet 20 mg PO DAILY 07/14/23
[2023-07-20 13:21] VITALS: BP 123/84; PULSE 64; RESP 18; TEMP 36.8; O2SAT 94
[2023-07-20] MEDS: Dicyclomine 10 MG Capsule 20 MG PO (13:39)
--- NOTE | 2023-07-20 15:54 | CHAPLAIN ---
Type of Pastoral Visit ___ Initial Visit _x__ Follow-up Visit ___ On-call Visit ___ General Patient Visit ___ Spiritual Assessment ___ Family Conference ___ Bereavement ___ Rapid Response ___ Code Blue ___ Other (describe below) Pastoral Care Referral From _x__ Patient ___ Family ___ Nurse ___ Physician ___ Launch Manager ___ Packaging Designer ___ Other (describe below) Sacrament/Intervention _x__ Active listening ___ Anointing ___ Baptist ___ Bereavement ___ Communion ___ [place] exploration ___ ___ Life review _x__ Prayer ___ Reconciliation ___ Sacrament of Sick _x__ Supportive presence ___ Wedding ___ Other (describe below) Pastoral Comments met with patient for this follow up visit; pt is sitting on bed with his bags packed and clothes changed for transport to rehab; pt is visibly shaking his bed and admits to anxiety about not going home, missing his family, and going to the facility; pt anxiety is identified as how he will be welcomed at the rehab and how far it is from home; pt is tearful throughout the visit until the last minutes when he appears calmer and is shaking less; this was the state of things after calmly talking with the patient and asking him questions about his work, his family, and interests;
== END 2023-07-20 15:50 | disposition other institution (70) | DRG 897 ==
LOC: ED 21:57 → MS3 22:25
PROVIDERS: Admitting Provider Internal Medicine; Emergency Provider Emergency Medicine; Visit Provider Internal Medicine
DX: F13.130 Sedative, hypnotic or anxiolytic abuse with withdrawal, uncomplicated (principal); E66.9 Obesity, unspecified; I10 Essential (primary) hypertension; F41.1 Generalized anxiety disorder; Z68.38 Body mass index [BMI] 38.0-38.9, adult; Z79.01 Long term (current) use of anticoagulants; Z79.899 Other long term (current) drug therapy; Z86.711 Personal history of pulmonary embolism
CPT/HCPCS: 36415; 76705; 80053; 80074; 80307; 82077; 83036; 84443; 85025; 85610; 99283